=== PATIENT | male | born 1985 | race Caucasian/White ===

== ENCOUNTER 2019-02-14 17:13 | Emergency (ER) | payer BC ==
[2019-02-14] MEDS ORDERED: ONDANSETRON HCL INJ/PF 4 MG/2 ML SDV IV ONE (17:36)
[2019-02-14] MEDS ORDERED: NORMAL SALINE 1000 ML 1,000 ML IV ONE ×2 (17:36→19:16)
[2019-02-14] MEDS ORDERED: FAMOTIDINE INJ/PF 20 MG/2 ML SDV IV ONE (17:37)
--- NOTE | 2019-02-14 17:39 | ER Document Report ---
ED Medical Screen (RME) - General Chief Complaint: Abdominal Pain Stated Complaint: ABDOMINAL PAIN Time Seen by Provider: 02/14/19 17:36 Notes: Patient is a 33-year-old male with a history of seizures presents to the emergency department with a chief complaint of upper abdominal pain. Patient states he woke up around 8 AM this morning and attempted to drink soda when he got excruciating epigastric pain. Patient states he has vomited greater than 10 times since then. Patient states every time he attempts to drink something he vomits. Patient states he has had 2 episodes of diarrhea. Patient denies blood in the vomitus or stool. Patient reports the epigastric pain feels like a shooting. Patient states his urine has been very dark. Patient states over the past few days he has not been eating as he does not have money and has been working out in the heat 9+ hours per day. Patient concerned about possible dehydration. Patient reports he is a social drinker, smokes 1 pack/day and occasionally smokes marijuana. TRAVEL OUTSIDE OF THE [place] IN LAST 30 DAYS: No - Related Data Allergies/Adverse Reactions: No Known Allergies Allergy (Unverified 02/14/19 17:16) Past Medical History - Social History Drug Abuse: Marijuana Renal/ Medical History: Denies: Hx Peritoneal Dialysis Past Surgical History: Reports: Hx Orthopedic Surgery Physical Exam - Vital signs Vitals: Temp Pulse BP Pulse Ox 98.2 F 100 156/97 H 100 02/14/19 17:18 02/14/19 17:18 02/14/19 17:18 02/14/19 17:18 - Abdominal Inspection: Normal Distension: No distension Bowel sounds: Normal Tenderness: Tender - epigastric tenderness Course - Re-evaluation Re-evalutation: 02/14/19 17:39 I have greeted and performed a rapid initial assessment of this patient. A comprehensive ED assessment and evaluation of the patient, analysis of test results and completion of the medical decision making process will be conducted by additional ED providers. - Vital Signs Vital signs: Temp Pulse Resp BP Pulse Ox 98.2 F 100 156/97 H 100 02/14/19 17:18 02/14/19 17:18 02/14/19 17:18 02/14/19 17:18
[2019-02-14] MEDS ORDERED: LIDOCAINE 2% VISCOUS SOLN 20 ML UDCUP PO ONE (17:59)
[2019-02-14] MEDS ORDERED: MAG HYDROX/AL HYDROX/SIMETH SUSP 30 ML UDCUP PO ONE (17:59)
--- NOTE | 2019-02-14 18:02 | ER Document Report ---
ED GI/ - General Mode of Arrival: Ambulatory Information source: Patient TRAVEL OUTSIDE OF THE [place] IN LAST 30 DAYS: No - HPI Patient complains to provider of: Abdominal pain, Diarrhea, Vomiting. No: Dysuria Onset: This morning Timing/Duration: Gradual Quality of pain: Sharp Pain Level: 4 Location: Epigastric Associated symptoms: Diarrhea, Nausea, Vomiting. denies: Blood in emesis, Blood in stool, Constipation, Fever, Urinary hesitancy, Urinary frequency, Urinary retention, Urinary urgency Exacerbated by: Denies Relieved by: Denies Similar symptoms previously: No Recently seen / treated by doctor: No <MARINA HANNON - Last Filed: 02/14/19 20:07> <GARY BLAND - Last Filed: 02/14/19 23:10> - General Chief Complaint: Abdominal Pain Stated Complaint: ABDOMINAL PAIN Time Seen by Provider: 02/14/19 17:36 Notes: Patient presents complaining of upper abdominal pain with nausea vomiting diarrhea that started this morning. Patient states that he is currently homeless and has been sleeping in his truck and working long days in the heat. Patient is concerned he may be dehydrated. Patient denies any fever. Patient denies any muscle cramps at this time. (MARINA HANNON) - Related Data Allergies/Adverse Reactions: No Known Allergies Allergy (Unverified 02/14/19 17:16) Past Medical History - General Information source: Patient - Social History Smoking Status: Current Every Day Smoker Drug Abuse: Marijuana Occupation: [employer] Operator Lives with: Homeless Family History: Reviewed & Not Pertinent Patient has suicidal ideation: No Patient has homicidal ideation: No Neurological Medical History: Reports: Hx Seizures Renal/ Medical History: Denies: Hx Peritoneal Dialysis Musculoskeletal Medical History: Reports Other - Chronic pain Psychiatric Medical History: Reports: Hx Anxiety, Hx Depression Past Surgical History: Reports: Hx Orthopedic Surgery <MARINA HANNON - Last Filed: 02/14/19 20:07> Review of Systems - Review of Systems Constitutional: No symptoms reported. denies: Fever, Recent illness EENT: No symptoms reported Cardiovascular: No symptoms reported. denies: Chest pain, Dizziness Respiratory: No symptoms reported. denies: Cough, Short of breath Gastrointestinal: Abdominal pain, Diarrhea, Nausea, Vomiting Genitourinary: No symptoms reported. denies: Dysuria Male Genitourinary: No symptoms reported Musculoskeletal: No symptoms reported. denies: Back pain Skin: No symptoms reported Hematologic/Lymphatic: No symptoms reported Neurological/Psychological: No symptoms reported. denies: Lost consciousness, Headaches <MARINA HANNON - Last Filed: 02/14/19 20:07> Physical Exam - General General appearance: Appears well, Alert In distress: None - HEENT Head: Normocephalic, Atraumatic Eyes: Normal Conjunctiva: Normal Nasal: Normal Mouth/Lips: Normal Mucous membranes: Normal Neck: Normal, Supple. No: Lymphadenopathy - Respiratory Respiratory status: No respiratory distress Chest status: Nontender Breath sounds: Normal. No: Rales, Rhonchi, Stridor, Wheezing Chest palpation: Normal - Cardiovascular Rhythm: Regular Heart sounds: S1 appreciated, S2 appreciated Murmur: No - Abdominal Inspection: Normal Distension: No distension Bowel sounds: Normal Tenderness: Tender - epigastric Organomegaly: No organomegaly - Back Back: Normal, Nontender. No: CVA tenderness - Extremities General upper extremity: Normal inspection, Normal ROM General lower extremity: Normal inspection, Normal ROM - Neurological Neuro grossly intact: Yes Cognition: Normal Melany Coma Scale Eye Opening: Spontaneous Melany Coma Scale Verbal: Oriented [place] Coma Scale Motor: Obeys Commands Melany Coma Scale Total: 15 - Psychological Associated symptoms: Normal affect, Normal mood - Skin Skin Temperature: Warm Skin Moisture: Dry Skin Color: Normal <MARINA HANNON - Last Filed: 02/14/19 20:07> - Vital signs Vitals: Temp Pulse BP Pulse Ox 98.2 F 100 156/97 H 100 02/14/19 17:18 02/14/19 17:18 02/14/19 17:18 02/14/19 17:18 Course - Laboratory Result Diagrams: 02/14/19 17:45 02/14/19 17:45 <MARINA HANNON - Last Filed: 02/14/19 20:07> - Laboratory Result Diagrams: 02/14/19 17:45 02/14/19 19:40 <GARY BLAND - Last Filed: 02/14/19 23:10> - Re-evaluation Re-evalutation: 02/14/19 20:07 Bedside report and handoff given to ZHAO Joaquin (MARINA HANNON) 02/14/19 Chemistry nonspecific. Urinalysis shows 80+ ketones and elevated specific gravity with a few white blood cells. Patient has no urinary symptoms. Urine culture was placed. Ultrasound without any acute findings. On reevaluation patient has no complaints, he is almost completed with his fluids, he states he feels great now he is requesting to leave. He states he thinks he just got overheated and dehydrated. He requests a work note for tomorrow. I discussed follow-up and return precautions. Patient and family at bedside now state understanding and agreement. (GARY BLAND) - Vital Signs Vital signs: Temp Pulse Resp BP Pulse Ox 97.9 F 77 16 141/79 H 100 02/14/19 22:38 02/14/19 22:38 02/14/19 22:38 02/14/19 22:38 02/14/19 22:38 - Laboratory Laboratory results interpreted by me: 02/14/19 02/14/19 02/14/19 17:45 19:40 20:26 RDW 14.1 H Seg Neutrophils % 83.9 H Lymphocytes % 10.5 L Absolute Neutrophils 8.7 H Sodium 136.1 L Carbon Dioxide 15 L Urine Protein 100 H Urine Ketones 80 H Urine Urobilinogen 2.0 H Ur Leukocyte Esterase SMALL H Discharge <MARINA HANNON - Last Filed: 02/14/19 20:07> <GARY BLAND - Last Filed: 02/14/19 23:10> - Discharge Clinical Impression: Nausea vomiting and diarrhea Abdominal pain Qualifiers: Abdominal location: epigastric Qualified Code(s): R10.13 - Epigastric pain Condition: Stable Disposition: HOME, SELF-CARE Additional Instructions: You have been treated for the dehydration as we discussed. Continue hydrating, rest, take the famotidine as prescribed, take the Phenergan if needed for nausea, start with bland food, avoid alcohol, NSAIDs, caffeine, smoking, spicy food initially. Follow-up with primary care. Return if you worsen including return vomiting, severe abdominal pain, or any other concerning symptoms. Prescriptions: Famotidine [Pepcid 20 mg Tablet] 20 mg PO BID #14 tablet Promethazine HCl [Phenergan 25 mg Tablet] 25 mg PO Q6H PRN #15 tablet PRN Reason: Forms: Return to Work
[2019-02-14 18:29] LABS: ABSOLUTE LYMPHOCYTES (AUTO) 1.1 10^3/uL (0.5-4.7); ABSOLUTE MONOCYTES (AUTO) 0.5 10^3/uL (0.1-1.4); ABSOLUTE NEUT (AUTO) 8.7 10^3/uL (1.7-8.2); BASOPHILS % (AUTO) 0.3 % (0-2); HEMATOCRIT 49.9 % (37.9-51.0); LYMPHOCYTES % (AUTO) 10.5 % (13-45); MEAN CORPUSCULAR HEMOGLOBIN 32.7 pg (27.0-33.4); MEAN CORPUSCULAR VOLUME 96 fl (80-97); MONOCYTES % (AUTO) 5.3 % (3-13); PLATELET COUNT 270 10^3/uL (150-450); RED BLOOD COUNT 5.19 10^6/uL (4.35-5.55); RED CELL DISTRIBUTION WIDTH 14.1 % (11.5-14.0); SEGMENTED NEUTROPHILS % (AUTO) 83.9 % (42-78); TOTAL CELLS COUNTED % (AUTO) 100 %; WHITE BLOOD COUNT 10.3 10^3/uL (4.0-10.5)
[2019-02-14 20:20] LABS: ALBUMIN 4.9 g/dL (3.5-5.0); ALKALINE PHOSPHATASE 101 U/L (38-126); ANION GAP 18 (5-19); ASPARTATE AMINO TRANSFERASE 36 U/L (17-59); BILIRUBIN,DIRECT 0.3 mg/dL (0.0-0.4); BLOOD UREA NITROGEN 15 mg/dL (7-20); CALCIUM 9.8 mg/dL (8.4-10.2); CARBON DIOXIDE 15 mmol/L (22-30); CHLORIDE 103 mmol/L (98-107); CREATINE KINASE 55 U/L (55-170); GLUCOSE 79 mg/dL (75-110); POTASSIUM 4.3 mmol/L (3.6-5.0); TOTAL PROTEIN 7.8 g/dL (6.3-8.2)
--- NOTE | 2019-02-14 20:21 | RADIOLOGY REPORT (SQ) ---
US ABDOMEN LIMITED EXAM DATE: 02/14/2019 5:59 PM CDT HISTORY: Right upper quadrant pain. COMPARISON: None. TECHNIQUE: Grayscale and color Doppler imaging of the right upper quadrant was performed. FINDINGS: The liver has normal echotexture without focal lesion identified. The main portal vein has normal hepatopetal flow. No shadowing gallstones are seen. No pericholecystic fluid or gallbladder wall thickening. The common bile duct is normal caliber. The visualized portions of the pancreas are unremarkable. No hydronephrosis or shadowing renal stones are identified. The right kidney is normal in size. The visualized portions of the IVC and aorta are patent. IMPRESSION: No evidence of acute abdominal findings.
[2019-02-14 20:44] LABS: APPEARANCE,URINE CLEAR; BILIRUBIN,URINE NEGATIVE (NEGATIVE); COLOR,URINE YELLOW; GLUCOSE, URINE NEGATIVE (NEGATIVE); KETONES,URINE 80 mg/dL (NEGATIVE); LEUKOCYTE ESTERASE,URINE SMALL (NEGATIVE); NITRITE,URINE NEGATIVE (NEGATIVE); PROTEIN,URINE 100 mg/dL (NEGATIVE); URINE SPECIFIC GRAVITY 1.026
[2019-02-14] MEDS ORDERED: ONDANSETRON ODT 4 MG TAB (6 TAB/ER DISP) PO PRN (21:57)
[2019-02-14 22:39] VITALS: BP 141/79
== END 2019-02-14 22:42 | disposition home or self-care (01) ==
LOC: ER 17:13
DX: R10.13 Epigastric pain (principal); R11.2 Nausea with vomiting, unspecified; R19.7 Diarrhea, unspecified; F17.200 Nicotine dependence, unspecified, uncomplicated; F12.10 Cannabis abuse, uncomplicated; Z59.0 Homelessness
CPT/HCPCS: 36415; 82550; 83690; 85025; 80053; 81001; 76705; J3490; J2405; J7030; S0028; 87086; 96361; 96374; 96375; 99284

== ENCOUNTER 2019-02-15 20:24 | Emergency (ER) | payer BC ==
[2019-02-15] MEDS ORDERED: RINGERS SOLUTION,LACTATED 1,000 ML IV ONE (22:07)
[2019-02-15] MEDS ORDERED: MORPHINE SULFATE 10 MG/ML INJ IV ONE (22:27)
[2019-02-15] MEDS ORDERED: ONDANSETRON HCL INJ/PF 4 MG/2 ML SDV IV ONE (22:27)
[2019-02-15] MEDS ORDERED: FAMOTIDINE INJ/PF 20 MG/2 ML SDV IV ONE (22:27)
--- NOTE | 2019-02-15 22:32 | ER Document Report ---
ED General - General Chief Complaint: Abdominal Pain Stated Complaint: STOMACH PAIN Time Seen by Provider: 02/15/19 22:05 Mode of Arrival: Ambulatory Information source: Patient, [facility] Records Notes: 33-year-old male with history of depression, seizures, alcoholism, recreational drug use presents for the second day in a row with complaint of epigastric abdominal pain, nausea and vomiting. Patient was seen yesterday in the emergency department and was given Zofran but states that despite taking the medication he still had one episode of vomiting and seems that his abdominal pain has worsened. Patient states that he has been sleeping in his truck for over a week and has been in the heat constantly with work and sleeping outside. He states that he recently underwent alcohol rehabilitation but over the last week has had several drinks but denies drinking heavily. Patient's last bowel movement was this morning. He denies any black or bloody stools. Patient's last episode of vomiting was also this morning and he denies any blood. TRAVEL OUTSIDE OF THE [place] IN LAST 30 DAYS: No - HPI Onset: Other Onset/Duration: Persistent Quality of pain: Cramping Severity: Moderate Associated symptoms: Body/muscle aches, Headache, Nausea, Vomiting, Weakness. denies: Diarrhea, Fever, Shortness of breath, Sweating Exacerbated by: Food Relieved by: Denies Similar symptoms previously: Yes Recently seen / treated by doctor: Yes - Related Data Allergies/Adverse Reactions: No Known Allergies Allergy (Unverified 02/14/19 17:16) Past Medical History - General Information source: Patient - Social History Smoking Status: Current Every Day Smoker Chew tobacco use (# tins/day): No Frequency of alcohol use: Occasional Drug Abuse: Marijuana, Other Lives with: Homeless Family History: Reviewed & Not Pertinent Patient has suicidal ideation: No Patient has homicidal ideation: No Neurological Medical History: Reports: Hx Seizures Renal/ Medical History: Denies: Hx Peritoneal Dialysis Psychiatric Medical History: Reports: Hx Anxiety, Hx Depression Past Surgical History: Reports: Hx Orthopedic Surgery Review of Systems - Review of Systems Notes: REVIEW OF SYSTEMS: CONSTITUTIONAL : Denies fever, chills, or sweats. Denies recent illness. Denies weight loss, recent hospitalizations. EENT: Denies visual changes, eye pain. Denies sore throat, oral lesions, difficulty swallowing. CARDIOVASCULAR: Denies chest pain. Denies palpitations. Denies lower extremity edema. RESPIRATORY: Denies cough. Denies shortness of breath, wheezing. GASTROINTESTINAL: Denies abdominal distention. Denies diarrhea. Denies blood in vomitus, stools, or per rectum. Denies black, tarry stools. Denies constipation. GENITOURINARY: Denies difficulty urinating, painful urination, frequency, blood in urine, testicular pain or penile discharge. MUSCULOSKELETAL: Denies back or neck pain or stiffness. Denies joint pain or swelling. SKIN: Denies rash, lesions or sores. HEMATOLOGIC : Denies easy bruising or bleeding. LYMPHATIC: Denies swollen glands. NEUROLOGICAL: Denies confusion or altered mental status. Denies loss of consciousness. Denies dizziness or lightheadedness. Denies headache. Denies weakness or paralysis. Denies problems difficulty with ambulation, slurred speech. Denies sensory loss, numbness, or tingling. Denies seizures. PSYCHIATRIC: Denies anxiety or stress. Denies depression, suicidal ideation, or Physical Exam - Vital signs Vitals: Temp Pulse Resp BP Pulse Ox 98.5 F 97 20 156/91 H 97 02/15/19 20:28 02/15/19 20:28 02/15/19 20:28 02/15/19 20:28 02/15/19 20:28 - Notes Notes: PHYSICAL EXAMINATION: GENERAL: Ill-appearing, well-nourished and in no acute distress. HEAD: Atraumatic, normocephalic. EYES: Pupils equal round and reactive to light, extraocular movements intact, sclera anicteric, conjunctiva are normal. ENT: Nares patent, oropharynx clear without exudates. Moist mucous membranes. NECK: Normal range of motion, supple without lymphadenopathy LUNGS: Breath sounds clear to auscultation bilaterally and equal. No wheezes rales or rhonchi. HEART: Regular rate and rhythm without murmurs ABDOMEN: Soft, epigastric abdominal tenderness with palpation, nondistended abdomen. No guarding, no rebound. No masses appreciated. Negative McBurney's, negative King's, negative heel strike. Musculoskeletal: Normal range of motion, no pitting or edema. No cyanosis. NEUROLOGICAL: Cranial nerves grossly intact. Normal speech, normal gait. Normal sensory, motor exams PSYCH: Normal mood, normal affect. SKIN: Warm, Dry, normal turgor, no rashes or lesions noted. Course - Re-evaluation Re-evalutation: 02/16/19 03:03 Laboratory 02/15/19 02/15/19 02/15/19 00:35 22:59 22:59 WBC 9.0 RBC 4.71 Hgb 15.8 Hct 45.5 MCV 97 MCH 33.6 H MCHC 34.7 RDW 13.9 Plt Count 251 Lymph % (Auto) 15.1 [place] % (Auto) 6.8 Eos % (Auto) 0.4 Baso % (Auto) 1.1 Absolute Neuts (auto) 6.9 Absolute Lymphs (auto) 1.4 Absolute Monos (auto) 0.6 Absolute Eos (auto) 0.0 Absolute Basos (auto) 0.1 Seg Neutrophils % 76.6 Sodium 140.7 Cancelled Potassium 4.2 Cancelled Chloride 107 Cancelled Carbon Dioxide 22 Cancelled Anion Gap 12 Cancelled BUN 9 Cancelled Creatinine 0.84 Cancelled Est GFR ( Amer) > 60 Cancelled Est GFR (Non-Af Amer) Cancelled Est GFR (MDRD) Non-Af > 60 Cancelled Glucose 99 Cancelled Calcium 10.0 Cancelled Total Bilirubin 0.8 Cancelled Direct Bilirubin 0.4 Cancelled Neonat Total Bilirubin Not Reportable Cancelled Neonat Direct Bilirubin Not Reportable Cancelled Neonat Indirect Bili Not Reportable Cancelled AST 25 Cancelled ALT 19 Cancelled Alkaline Phosphatase 83 Cancelled Total Protein 7.5 Cancelled Albumin 4.7 Cancelled Lipase 152.8 Cancelled EGFR Cancelled Urine Color Urine Appearance Urine pH Ur Specific [place] Urine Protein Urine Glucose (UA) Urine Ketones Urine Blood Urine Nitrite Urine Bilirubin Urine Urobilinogen Ur Leukocyte Esterase Urine WBC (Auto) Urine RBC (Auto) Urine Bacteria (Auto) Squamous Epi Cells Auto Amorphous Sediment Auto Urine Mucus (Auto) Urine Ascorbic Acid Urine Opiates Screen Urine Methadone Screen Ur Barbiturates Screen Ur Phencyclidine Scrn Ur Amphetamines Screen U Benzodiazepines Scrn Urine Cocaine Screen U Marijuana (THC) Screen Serum Alcohol < 10 Cancelled 02/16/19 02/16/19 01:00 01:00 WBC RBC Hgb Hct MCV MCH MCHC RDW Plt Count Lymph % (Auto) [place] % (Auto) Eos % (Auto) Baso % (Auto) Absolute Neuts (auto) Absolute Lymphs (auto) Absolute Monos (auto) Absolute Eos (auto) Absolute Basos (auto) Seg Neutrophils % Sodium Potassium Chloride Carbon Dioxide Anion Gap BUN Creatinine Est GFR ( Amer) Est GFR (Non-Af Amer) Est GFR (MDRD) Non-Af Glucose Calcium Total Bilirubin Direct Bilirubin Neonat Total Bilirubin Neonat Direct Bilirubin Neonat Indirect Bili AST ALT Alkaline Phosphatase Total Protein Albumin Lipase EGFR Urine Color YELLOW Urine Appearance CLOUDY Urine pH 6.0 Ur Specific [place] 1.018 Urine Protein 30 H Urine Glucose (UA) NEGATIVE Urine Ketones TRACE H Urine Blood NEGATIVE Urine Nitrite NEGATIVE Urine Bilirubin NEGATIVE Urine Urobilinogen 2.0 H Ur Leukocyte Esterase NEGATIVE Urine WBC (Auto) 4 Urine RBC (Auto) 2 Urine Bacteria (Auto) TRACE Squamous Epi Cells Auto <1 Amorphous Sediment Auto TRACE Urine Mucus (Auto) MANY Urine Ascorbic Acid NEGATIVE Urine Opiates Screen UNCONFIRMED POSITIVE Urine Methadone Screen NEGATIVE Ur Barbiturates Screen NEGATIVE Ur Phencyclidine Scrn NEGATIVE Ur Amphetamines Screen NEGATIVE U Benzodiazepines Scrn NEGATIVE Urine Cocaine Screen NEGATIVE U Marijuana (THC) Screen UNCONFIRMED POSITIVE Serum Alcohol Abdomen/Pelvis CT 02/16/19 00:00 IMPRESSION: No acute inflammatory process. No renal or ureteral calculi. Temp Pulse Resp BP Pulse Ox 98.5 F 97 20 156/91 H 97 02/15/19 20:28 02/15/19 20:28 02/15/19 20:28 02/15/19 20:28 02/15/19 20:28 02/16/19 04:45 33-year-old male presents for the second day in a row with complaint of nausea, vomiting, epigastric abdominal pain and diarrhea. Vital signs reviewed upon arrival and patient is hypertensive but afebrile, not tachycardic or hypoxic. He appears ill but not toxic or dehydrated. CBC is without leukocytosis or anemia. CMP shows no significant electrolyte abnormality. Urinalysis shows trace ketones which is an improvement from yesterday where patient had 80 ketones. Patient did receive 2 L of lactated Ringer's, Zofran, Reglan, Benadryl but on reevaluation continued to vomit. Urine drug screen was positive for marijuana making me suspicious for possible cannabinoid hyperemesis syndrome or he just has gastroenteritis. Patient did receive Haldol and capsaicin cream was placed in the epigastric region. On reevaluation patient is sleeping soundly. He has been eating peanut butter and crackers without recurrent vomiting. Patient will be discharged home with [place], recommendations to abstain from marijuana use. Presentation of an overall well-appearing patient in no acute distress with complaints of nausea, vomiting, diarrhea. This is consistent with likely viral gastroenteritis. Patient has no abdominal tenderness on exam and specifically no tenderness in the RLQ, LLQ, RUQ. Overall well hydrated on exam. Able to tolerate oral intake here in the emergency department. Low clinical suspicion for any acute life-threatening etiology based on exam and history including acute cholecystitis, SBO, appendicitis, nephrolithiasis, or pylonephritis. CMP without evidence of acute hepatitis or significant dehydration. Will plan for discharge at this time with return precautions and followup recommendations. Patient was evaluated and treated as appropriate for the patient's presenting symptoms and complaint, with consideration of any critical or life threatening conditions that may be associated with their obtained history and exam as noted above. All results were discussed with patient. Patient provided the opportunity to ask questions, and express concerns. Patient was educated on treatments based on their presumed diagnosis as noted above. At this time we will discharge the patient with return precautions and follow-up recommendations. Verbal discharge instructions given a the bedside. Medication warnings reviewed. Patient is in agreement with this plan and has verbalized understanding of return precautions. After careful consideration I feel that that patient can be safely discharged f rom the emergency department, they were advised to followup with a primary care physician in 2-3 days. Dictation on this chart was performed using voice recognition software and may result in unintended grammatical, spelling, syntax or errors. - Vital Signs Vital signs: Temp Pulse Resp BP Pulse Ox 98.5 F 97 20 156/91 H 100 02/15/19 20:28 02/15/19 20:28 02/15/19 20:28 02/15/19 20:28 02/16/19 03:12 - Laboratory Result Diagrams: 02/15/19 22:59 02/15/19 22:59 Laboratory results interpreted by me: 02/15/19 02/16/19 22:59 01:00 MCH 33.6 H Urine Protein 30 H Urine Ketones TRACE H Urine Urobilinogen 2.0 H - Diagnostic Test Radiology reviewed: Image reviewed, Reports reviewed Discharge - Discharge Clinical Impression: Nausea vomiting and diarrhea, Marijuana use, Elevated blood pressure reading Abdominal pain Qualifiers: Abdominal location: generalized Qualified Code(s): R10.84 - Generalized abdominal pain Condition: Good Disposition: HOME, SELF-CARE Instructions: Abdominal Pain ([facility]), Diarrhea, Nonspecific ([facility]), Intravenous (IV) Fluids ([facility]), Vomiting ([facility]) Additional Instructions: Your symptoms are likely due to a viral illness and should resolve in the next several days. You can take [id number] loperamide also known as Imodium as needed for diarrhea per box instructions. Continue to stay hydrated with plenty of solution such as Gatorade or Pedialyte. You are being prescribed Zofran to take as needed for nausea and vomiting. Please return if you develop severe abdominal pain, pass out, become unable to tolerate any oral fluids for 12 more hours, or any other symptoms that are concerning to you. Also frequent marijuana use can cause persistent vomiting. Please use the capsaicin cream you were given in place this over the area of tenderness on your abdomen. Please stop using marijuana. Prescriptions: Famotidine [Pepcid 40 mg Tablet] 40 mg PO DAILY 10 Days #10 tablet Forms: Elevated Blood Pressure
[2019-02-15 23:13] LABS: ABSOLUTE BASOPHILS # (AUTO) 0.1 10^3/uL (0.0-0.2); ABSOLUTE LYMPHOCYTES (AUTO) 1.4 10^3/uL (0.5-4.7); ABSOLUTE MONOCYTES (AUTO) 0.6 10^3/uL (0.1-1.4); ABSOLUTE NEUT (AUTO) 6.9 10^3/uL (1.7-8.2); BASOPHILS % (AUTO) 1.1 % (0-2); EOSINOPHILS % (AUTO) 0.4 % (0-6); HEMATOCRIT 45.5 % (37.9-51.0); HEMOGLOBIN 15.8 g/dL (13.5-17.0); LYMPHOCYTES % (AUTO) 15.1 % (13-45); MEAN CORPUSCULAR HEMOGLOBIN 33.6 pg (27.0-33.4); MEAN CORPUSCULAR HGB CONC 34.7 g/dL (32.0-36.0); MEAN CORPUSCULAR VOLUME 97 fl (80-97); MONOCYTES % (AUTO) 6.8 % (3-13); PLATELET COUNT 251 10^3/uL (150-450); RED BLOOD COUNT 4.71 10^6/uL (4.35-5.55); RED CELL DISTRIBUTION WIDTH 13.9 % (11.5-14.0); SEGMENTED NEUTROPHILS % (AUTO) 76.6 % (42-78); TOTAL CELLS COUNTED % (AUTO) 100 %
[2019-02-15] MEDS ORDERED: DIPHENHYDRAMINE HCL 50 MG/ML VIAL IV ONE (23:25)
[2019-02-15] MEDS ORDERED: METOCLOPRAMIDE HCL INJ/PF 10 MG/2 ML SDV IV ONE (23:25)
[2019-02-16 01:02] LABS: ALBUMIN 4.7 g/dL (3.5-5.0); ALCOHOL < 10 mg/dL (NONE DETECTED); ALKALINE PHOSPHATASE 83 U/L (38-126); ANION GAP 12 (5-19); ASPARTATE AMINO TRANSFERASE 25 U/L (17-59); BILIRUBIN,DIRECT 0.4 mg/dL (0.0-0.4); BILIRUBIN,TOTAL 0.8 mg/dL (0.2-1.3); BLOOD UREA NITROGEN 9 mg/dL (7-20); CARBON DIOXIDE 22 mmol/L (22-30); CHLORIDE 107 mmol/L (98-107); GLUCOSE 99 mg/dL (75-110); POTASSIUM 4.2 mmol/L (3.6-5.0); TOTAL PROTEIN 7.5 g/dL (6.3-8.2)
[2019-02-16] MEDS ORDERED: NORMAL SALINE 1000 ML 1,000 ML IV ONE (01:12)
[2019-02-16 01:23] LABS: AMORPHOUS SEDIMENT,URINE TRACE /HPF; APPEARANCE,URINE CLOUDY; BILIRUBIN,URINE NEGATIVE (NEGATIVE); COLOR,URINE YELLOW; GLUCOSE, URINE NEGATIVE (NEGATIVE); KETONES,URINE TRACE mg/dL (NEGATIVE); LEUKOCYTE ESTERASE,URINE NEGATIVE (NEGATIVE); NITRITE,URINE NEGATIVE (NEGATIVE); PROTEIN,URINE 30 mg/dL (NEGATIVE); URINE SPECIFIC GRAVITY 1.018
[2019-02-16 01:46] LABS: URINE AMPHETAMINES SCREEN NEGATIVE; URINE BARBITURATES SCREEN NEGATIVE; URINE BENZODIAZEPINES SCREEN NEGATIVE; URINE COCAINE SCREEN NEGATIVE; URINE MARIJUANA (THC) SCREEN UNCONFIRMED POSITIVE; URINE METHADONE SCREEN NEGATIVE; URINE PHENCYCLIDINE SCREEN NEGATIVE
--- NOTE | 2019-02-16 01:58 | RADIOLOGY REPORT (SQ) ---
CLINICAL HISTORY: Epigastric abdominal pain COMPARISON: None. TECHNIQUE: CT ABDOMEN PELVIS WITH IV CONTRAST on 02/16/2019 12:00 AM CDT This exam was performed according to our departmental dose-optimization program, which includes automated exposure control, adjustment of the mA and/or kV according to patient size and/or use of iterative reconstruction technique. FINDINGS: Lower lungs are clear. Abdomen: The liver is normal in appearance. There is no biliary dilatation. Gallbladder is normal in appearance. The pancreas and spleen are normal in appearance. The adrenal glands and kidneys are unremarkable. Abdominal aorta is normal in course and caliber without aneurysm. There is no free air. There is no retroperitoneal adenopathy. Pelvis: There is no bowel obstruction. Urinary bladder is unremarkable. There is no free fluid. Appendix is normal. Skeleton: There are no acute osseous findings. No suspicious bony lesions. IMPRESSION: No acute inflammatory process. No renal or ureteral calculi.
[2019-02-16] MEDS ORDERED: HALOPERIDOL LACTATE INJ 5 MG/1 ML VIAL IV ONE (02:09)
[2019-02-16] MEDS ORDERED: CAPSAICIN HP 0.075% CREAM 60 GM TP ONE (02:09)
[2019-02-16] MEDS ORDERED: CAPSAICIN 0.025% CREAM 60 GM ONE (02:15)
[2019-02-16] MEDS ORDERED: CAPSAICIN 0.025% CREAM 60 GM TP ONE (03:04)
[2019-02-16] MEDS ORDERED: ONDANSETRON ODT 4 MG TAB (6 TAB/ER DISP) PO PRN (03:11)
[2019-02-16 05:19] VITALS: BP 132/95
== END 2019-02-16 05:19 | disposition home or self-care (01) ==
LOC: ER 20:24
DX: R10.13 Epigastric pain (principal); R10.84 Generalized abdominal pain; F12.90 Cannabis use, unspecified, uncomplicated; R03.0 Elevated blood-pressure reading, without diagnosis of hypertension; R11.2 Nausea with vomiting, unspecified; R19.7 Diarrhea, unspecified; M79.10 Myalgia, unspecified site
CPT/HCPCS: 36415; 85025; J1200; J2765; J2270; J2405; J7120; S0028; 74177; 80053; 80307; 81001; 83690; J1630; J3490; J7030